=== PATIENT | male | born 1950 | race African-American/Black ===

== ENCOUNTER 2019-01-01 15:54 | Inpatient (IN) | payer MEDICARE, MEDICAID ==
[~2019-01-01] VITALS: Ht 188 cm; Wt 95.3 kg
[~2019-01-01 15:54] MED LIST: BENZTROPINE MESY2 MG ORAL; CARAFATE1 G1 ORAL; DOXAZOSIN MESYLA2 MG PO; INVEGA6 MG PO; KLOR-CON 88 MEQ PO; LISINOPRIL40 MG PO; MELOXICAM7.5 MG PO; MIRALAX17 GM PO; NEXIUM40 MG ORAL; NORVASC10 MG PO; RISPERDAL4 MG PO; SUCRALFATE1 GM/10 ML PO; THIORIDAZINE H100 MG PO
[2019-01-01 16:20] VITALS: BP 130/84
--- NOTE | 2019-01-01 16:20 | NUR ---
ED Nurse Note: patient walked into ED from home with sister in law. patient visited mental health clinic today and they spoke with his primary docter Dr. Tapia, Dr. Tapia sent the patient here for acute altered mental status. patient is alert and awake x1, disoriented to time and place, patient is compliant and follows direction. sister in law at bedside.
[2019-01-01] MEDS ORDERED: FLOMAX0.4 MG ORAL (16:21)
[2019-01-01] MEDS ORDERED: VITAMIN D3 COM1 EACH PO (16:21)
[2019-01-01] MEDS ORDERED: PANTOPRAZOLE SO40 MG ORAL (16:21)
--- NOTE | 2019-01-01 16:55 | NUR ---
ED Nurse Note: patient went down for CT
[2019-01-01 16:56] LABS: BASOPHILS % (AUTO) 0.9 % (0.0-2.0); EOSINOPHILS % (AUTO) 1.6 % (0.0-3.0); HEMOGLOBIN 14.4 G/DL (14.2-18.0); LYMPHOCYTES % (AUTO) 29.5 % (20.0-45.0); MEAN CORPUSCULAR VOLUME 85 FL (80-99); MONOCYTES % (AUTO) 7.3 % (1.0-10.0); NEUTROPHILS % (AUTO) 60.6 % (45.0-75.0); PLATELET COUNT 172 K/UL (150-450); RED BLOOD COUNT 5.17 M/UL (4.70-6.10); RED CELL DISTRIBUTION WIDTH 12.9 % (11.6-14.8)
[2019-01-01 17:04] LABS: INR 1.1 (0.9-1.1)
[2019-01-01 17:08] LABS: ANION GAP 14 mmol/L (5-15); BLOOD UREA NITROGEN 8 mg/dL (7-18); CALCIUM 9.7 MG/DL (8.5-10.1); CARBON DIOXIDE 24 MMOL/L (21-32); CHLORIDE 103 MMOL/L (98-107); CREATININE 1.3 MG/DL (0.55-1.30); POTASSIUM 3.5 MMOL/L (3.5-5.1); SODIUM 141 MMOL/L (136-145)
[2019-01-01 17:21] LABS: ALANINE AMINOTRANSFERASE 16 U/L (12-78); ALBUMIN 3.9 G/DL (3.4-5.0); ALBUMIN/GLOBULIN RATIO 0.9 (1.0-2.7); ALKALINE PHOSPHATASE 75 U/L (46-116); ASPARTATE AMINO TRANSFERASE 9 U/L (15-37); BILIRUBIN,TOTAL 0.6 MG/DL (0.2-1.0); CKMB < 0.5 NG/ML (0.0-3.6); CREATINE KINASE 59 U/L (26-308); PHOSPHORUS 3.5 MG/DL (2.5-4.9)
--- NOTE | 2019-01-01 17:22 | Diagnostic Imaging Report ---
Indication: Altered mental status Technique: Contiguous 5 mm thick transaxial imaging of the head obtained in a Siemens Sensation [address] scanner. Soft tissue and bone windows generated. Automatic Exposure Control was utilized. Total Dose length Product (DLP): 1495.[address] Dose Index Volume (CTDIvol): 70.38 mGy Comparison: 06/11/2008 Findings: Mild, nonspecific, white matter hypoattenuation is noted throughout the brain consistent with chronic small vessel disease. There is no midline shift, edema, acute hemorrhage, mass effect, or abnormal extra-axial fluid collections. Bones and extra osseous soft tissues are unremarkable. Impression: No acute intracranial bleed, mass effect or edema. Nonspecific white matter hypoattenuation probably due to chronic small vessel disease. The CT scanner at [facility] is accredited by the [employer] and the scans are performed using dose optimization techniques as appropriate to a performed exam including Automatic Exposure control.
--- NOTE | 2019-01-01 17:41 | Emergency Room Report ---
History of Present Illness General Chief Complaint: Altered Mental Status Source: Patient Present Illness HPI This patient is brought in by his sister. Apparently, the patient has had a significant decline over the past month. Per report, he has lost 20 pounds and has been more forgetful and has had a change in his cognition. Per report he has had delusions and this is unusual for him. The patient himself has no specific complaints. He stated to me that he is here because people were concerned he was having delusions. He denies recent illness. He denies pain. He denies headache. He denies fever or chills. He denies cough or congestion. When asked, he states that it is 1942, Viral is president and it is February. Allergies: Coded Allergies: No Known Allergies (Verified , 11/21/15) Patient History Past Medical History: see triage record, HTN, GERD, psych hx - Schizophrenia Social History: Denies: smoking, alcohol use, drug use Reviewed Nursing Documentation: PMH: Agreed; PSxH: Agreed Nursing Documentation-PMH Past Medical History: No History, Except For Hx Cardiac Problems: Yes Hx Hypertension: Yes Hx Cancer: No Hx Gastrointestinal Problems: Yes Hx Neurological Problems: No Review of Systems All Other Systems: negative except mentioned in HPI Physical Exam Vital Signs Date Time Temp Pulse Resp B/P (MAP) Pulse Ox O2 Delivery O2 Flow Rate FiO2 01/01/19 16:06 97.9 93 20 105/76 98 01/01/19 16:20 Room Air Sp02 EP Interpretation: reviewed, normal General Appearance: no apparent distress, alert, GCS 15, non-toxic Head: normocephalic, atraumatic Eyes: bilateral eye normal inspection, bilateral eye PERRL ENT: hearing grossly normal, normal pharynx, no angioedema, normal voice Neck: full range of motion, supple/symm/no masses Respiratory: chest non-tender, lungs clear, normal breath sounds, no respiratory distress, no retraction, no accessory muscle use, speaking full sentences Cardiovascular #1: regular rate, rhythm, no edema Gastrointestinal: normal bowel sounds, non tender, soft, non-distended, no guarding, no rebound Rectal: deferred Musculoskeletal: back normal, normal range of motion, non-tender Neurologic: alert, responsive, other - slurred speech Psychiatric: mood/affect normal, no suicidal/homicidal ideation Skin: normal color, no rash, warm/dry, well hydrated Medical Decision Making Diagnostic Impression: Primary Impression: Failure to thrive Additional Impression: Altered mental status ER Course This patient presents with a change in his mental status. He has lost weight which is consistent with failure to thrive. Apparently, he is deteriorating with his mental status and cognition. This could be related to his psychiatric history versus progression of dementia. There is no obvious infectious etiology. Laboratory workup to include CBC, CMP, cardiac enzymes and CT head showed abnormalities. This patient is admitted for further evaluation of his failure to thrive and deteriorating cognition. Laboratory Tests Test 01/01/19 16:30 01/01/19 16:36 01/01/19 17:43 White Blood Count 6.0 K/UL (4.8-10.8) Red Blood Count 5.17 M/UL (4.70-6.10) Hemoglobin 14.4 G/DL (14.2-18.0) Hematocrit 44.0 % (42.0-52.0) Mean Corpuscular Volume 85 FL (80-99) Mean Corpuscular Hemoglobin 27.9 PG (27.0-31.0) Mean Corpuscular Hemoglobin Concent 32.8 G/DL (32.0-36.0) Red Cell Distribution Width 12.9 % (11.6-14.8) Platelet Count 172 K/UL (150-450) Mean Platelet Volume 6.6 FL (6.5-10.1) Neutrophils (%) (Auto) 60.6 % (45.0-75.0) Lymphocytes (%) (Auto) 29.5 % (20.0-45.0) Monocytes (%) (Auto) 7.3 % (1.0-10.0) Eosinophils (%) (Auto) 1.6 % (0.0-3.0) Basophils (%) (Auto) 0.9 % (0.0-2.0) Prothrombin Time 11.2 SEC (9.30-11.50) Prothrombin Time INR 1.1 (0.9-1.1) PTT 26 SEC (23-33) Sodium Level 141 MMOL/L (136-145) Potassium Level 3.5 MMOL/L (3.5-5.1) Chloride Level 103 MMOL/L (98-107) Carbon Dioxide Level 24 MMOL/L (21-32) Anion Gap 14 mmol/L (5-15) Blood Urea Nitrogen 8 mg/dL (7-18) Creatinine 1.3 MG/DL (0.55-1.30) Estimate Glomerular Filtration Rate > 60 mL/min (>60) Glucose Level 90 MG/DL (74-106) Lactic Acid Level 1.70 mmol/L (0.4-2.0) Calcium Level 9.7 MG/DL (8.5-10.1) Phosphorus Level 3.5 MG/DL (2.5-4.9) Magnesium Level 1.8 MG/DL (1.8-2.4) Total Bilirubin 0.6 MG/DL (0.2-1.0) Aspartate Amino Transferase (AST) 9 U/L (15-37) L Alanine Aminotransferase (ALT) 16 U/L (12-78) Alkaline Phosphatase 75 U/L (46-116) Total Creatine Kinase 59 U/L (26-308) Creatine Kinase MB < 0.5 NG/ML (0.0-3.6) Creatine Kinase MB Relative Index 0.8 Troponin I 0.000 ng/mL (0.000-0.056) Total Protein 8.1 G/DL (6.4-8.2) Albumin 3.9 G/DL (3.4-5.0) Globulin 4.2 g/dL Albumin/Globulin Ratio 0.9 (1.0-2.7) L Urine Color Yellow Urine Appearance Clear Urine pH 6.5 (4.5-8.0) Urine Specific Milburn 1.010 (1.005-1.035) Urine Protein Negative (NEGATIVE) Urine Glucose (UA) Negative (NEGATIVE) Urine Ketones Negative (NEGATIVE) Urine Blood Negative (NEGATIVE) Urine Nitrite Negative (NEGATIVE) Urine Bilirubin Negative (NEGATIVE) Urine Urobilinogen 1 MG/DL (0.0-1.0) H Urine Leukocyte Esterase 1+ (NEGATIVE) H Urine RBC 0-2 /HPF (0 - 0) H Urine WBC 0-2 /HPF (0 - 0) Urine Squamous Epithelial Cells Occasional /LPF Urine Bacteria None /HPF (NONE) Microbiology Date/Time Source Procedure Growth Status 01/01/19 16:36 Nasal Nares Influenza Types A,B Antigen (FEDE) - Final Complete Laboratory Tests Test 01/01/19 16:30 01/01/19 16:36 White Blood Count 6.0 K/UL (4.8-10.8) Red Blood Count 5.17 M/UL (4.70-6.10) Hemoglobin 14.4 G/DL (14.2-18.0) Hematocrit 44.0 % (42.0-52.0) Mean Corpuscular Volume 85 FL (80-99) Mean Corpuscular Hemoglobin 27.9 PG (27.0-31.0) Mean Corpuscular Hemoglobin Concent 32.8 G/DL (32.0-36.0) Red Cell Distribution Width 12.9 % (11.6-14.8) Platelet Count 172 K/UL (150-450) Mean Platelet Volume 6.6 FL (6.5-10.1) Neutrophils (%) (Auto) 60.6 % (45.0-75.0) Lymphocytes (%) (Auto) 29.5 % (20.0-45.0) Monocytes (%) (Auto) 7.3 % (1.0-10.0) Eosinophils (%) (Auto) 1.6 % (0.0-3.0) Basophils (%) (Auto) 0.9 % (0.0-2.0) Prothrombin Time 11.2 SEC (9.30-11.50) Prothrombin Time INR 1.1 (0.9-1.1) PTT 26 SEC (23-33) Sodium Level 141 MMOL/L (136-145) Potassium Level 3.5 MMOL/L (3.5-5.1) Chloride Level 103 MMOL/L (98-107) Carbon Dioxide Level 24 MMOL/L (21-32) Anion Gap 14 mmol/L (5-15) Blood Urea Nitrogen 8 mg/dL (7-18) Creatinine 1.3 MG/DL (0.55-1.30) Estimate Glomerular Filtration Rate > 60 mL/min (>60) Glucose Level 90 MG/DL (74-106) Lactic Acid Level 1.70 mmol/L (0.4-2.0) Calcium Level 9.7 MG/DL (8.5-10.1) Phosphorus Level 3.5 MG/DL (2.5-4.9) Magnesium Level 1.8 MG/DL (1.8-2.4) Total Bilirubin 0.6 MG/DL (0.2-1.0) Aspartate Amino Transferase (AST) 9 U/L (15-37) L Alanine Aminotransferase (ALT) 16 U/L (12-78) Alkaline Phosphatase 75 U/L (46-116) Total Creatine Kinase 59 U/L (26-308) Creatine Kinase MB < 0.5 NG/ML (0.0-3.6) Creatine Kinase MB Relative Index 0.8 Troponin I 0.000 ng/mL (0.000-0.056) Total Protein 8.1 G/DL (6.4-8.2) Albumin 3.9 G/DL (3.4-5.0) Globulin 4.2 g/dL Albumin/Globulin Ratio 0.9 (1.0-2.7) L Microbiology Date/Time Source Procedure Growth Status 01/01/19 16:36 Nasal Nares Influenza Types A,B Antigen (FEDE) - Final Complete EKG Diagnostic Results Rate: normal Rhythm: NSR ST Segments: no acute changes Rhythm Strip Diag. Results EP Interpretation: yes Rate: 80's Rhythm: NSR, no PVC's, no ectopy Chest X-Ray Diagnostic Results Chest X-Ray Diagnostic Results : Chest X-Ray Ordered: Yes # of Views/Limited/Complete: 1 View Indication: Other EP Interpretation: Yes Interpretation: no consolidation, no effusion, no pneumothorax, no acute cardiopulmonary disease Impression: No acute disease Electronically Signed by: Rebecca Paul DO Last Vital Signs Date Time Temp Pulse Resp B/P (MAP) Pulse Ox O2 Delivery O2 Flow Rate FiO2 01/01/19 16:21 84 24 Room Air 01/01/19 16:20 97.9 130/84 99 Disposition: ADMITTED INPATIENT Condition: Stable Referrals: Donald Tapia MD (PCP) Rebecca Paul DO Jan 01, 2019 17:40
[2019-01-01 18:02] LABS: APPEARANCE,URINE CLEAR; BILIRUBIN, URINE NEGATIVE (NEGATIVE); COLOR,URINE YELLOW; GLUCOSE, URINE (UA) NEGATIVE (NEGATIVE); KETONES,URINE NEGATIVE (NEGATIVE); LEUKOCYTE ESTERASE ,URINE 1+ (NEGATIVE); NITRITE,URINE NEGATIVE (NEGATIVE); PH,URINE 6.5 (4.5-8.0); PROTEIN,URINE NEGATIVE (NEGATIVE); UROBILINOGEN,URINE 1 MG/DL (0.0-1.0)
[2019-01-01 18:27] VITALS: BP 130/84
--- NOTE | 2019-01-01 19:10 | NUR ---
HAND-OFF: Report given to Ayush Reyes RN. Patient stable in bed
--- NOTE | 2019-01-01 19:30 | NUR ---
ED Nurse Note: Called for report. Left on hold for 10 min. Will attempt to call back.
--- NOTE | 2019-01-01 19:40 | NUR ---
ED Nurse Note: Called back unit. No answer. Notified charge master specialist. placement secretary called unit; no answer. Notified Nursing Field Organizer.
--- NOTE | 2019-01-01 20:15 | NUR ---
TRANSFER TO FLOOR: Patient transferred to Med Surg 402-2 as ordered, per MD Willie . Report given to ALICE Masters. Patient in stable condition. Belongings list completed with receiving RN.
--- NOTE | 2019-01-01 20:30 | NUR ---
NURSE NOTES: Pt is admitted from ER with Dx of Altered Mental Status under Dr. tapia.Report received from Ayush ERAZO RN. Pt is awake and verbal. No acute distress noted. Vitals stable. Pt is oriented to the unit. Board updated. Pt's belongings checked. Orders acknowledged from Dr. Tapia. Dr. tapia will be called for further orders. Bed low in position,side rails up and call light within reach. Bed alarm on. Fall precautions implemented. Pt will be monitored.
[2019-01-01 20:32] VITALS: BP 129/86
[2019-01-01] MEDS: NS w/KCl 20mEq 1,000 ML IV SCH (20:49)
[2019-01-01] MEDS: Heparin 5000 units/ml inj SUBQ SCH (20:57)
--- NOTE | 2019-01-01 21:45 | NUR ---
NURSE NOTES: Pharmacy called regarding orders of Thorazine and Risperdal being scheduled together . Sister -in- law Jossie and Dr. Tapia is called to clarify the med orders per request of pharmacy. Message left , awating call back.
[2019-01-01] MEDS: Tamsulosin 0.4mg cap ORAL SCH (23:25)
[2019-01-02] VITALS: BP 135/82
[2019-01-02 04:00] VITALS: BP 137/72
--- NOTE | 2019-01-02 04:00 | NUR ---
NURSE NOTES: Pt's aipscd-ir-die Jossie is called again to speak to her regarding home medication, no answer.
--- NOTE | 2019-01-02 04:33 | NUR ---
NURSE NOTES: Ns with 20 mEq KCl running at 75ml/hr. Pt is able to drink juice and take meds. No acute distress noted.
--- NOTE | 2019-01-02 07:25 | NUR ---
HAND-OFF: Report given to Elba Jerry RN.Informed to get the medication orders clarified. Addendum: 01/02/19 at 0733 by RENETTA ZUNIGA RN RN Also rosie JENKINS made aware that pt is Fall Risk.
--- NOTE | 2019-01-02 07:33 | NUR ---
NURSE NOTES: Received report from ALICE Masters. Pt in bed asleep, respirations regular and appear unlabored, no apparent distress noted, bed in lowest position, call light within reach.
[2019-01-02 08:00] VITALS: BP 134/86
--- NOTE | 2019-01-02 08:22 | NUR ---
NURSE NOTES: Confirmed with Chantal in Pharmacy, okay to give Risperidol due to low dose. Hold Thorizine until dosage is confirmed and confirmed it is a home medication. Also, confirm with Dr. Tapia.
[2019-01-02] MEDS: Benztropine 1mg tab ORAL SCH ×3 (08:24→17:10)
--- NOTE | 2019-01-02 08:28 | NUR ---
CASE MANAGEMENT:REVIEW 68YR OLD FEMALE FROM HOME TO ER CC: SENT BY DR GUTIERREZ D/T BEING ALTERED SI: AMS. FTT 97.8 93 20 105/76 98% ON RA TROPONIN(-) IS: 1L NS BOLUS CT HEAD CXR BLOOD CX : TO MED/SURG UNIT 4 EAST PLAN: NEURO CHECKS Q4HR INTERQUAL CRITERIA MET Addendum: 01/02/19 at 0833 by NHAN WIGGINS LVN LVN CORRECTION 68 YR OLD MALE FROM HOME TO ER
[2019-01-02] MEDS: Heparin 5000 units/ml inj SUBQ SCH ×2 (08:31→20:51)
[2019-01-02] MEDS: NS w/KCl 20mEq 1,000 ML IV SCH (08:37)
--- NOTE | 2019-01-02 11:34 | NUR ---
RD ASSESSMENT & RECOMMENDATIONS SEE CARE ACTIVITY FOR COMPLETE ASSESSMENT DAILY ESTIMATED NEEDS: Needs based on cardiac 88.6kg adj 25-30 kcals/kg 4864-0457 total kcals 1-1.2 g protein/kg 89-106 g total protein 25-30 mL/kg 8013-5509 total fluid mLs NUTRITION DIAGNOSIS: Chewing difficulty r/t dentition as evidenced by pt is edentulous, pending STEREOTYPE MOLDER eval for possible swallowing difficulty. CURRENT DIET: LUIS ENRIQUE soft easy chew PO DIET RECOMMENDATIONS: LOW NA diet (texture per STEREOTYPE MOLDER) ADDITIONAL RECOMMENDATIONS: 1) Obtain a calibrated bed scale wt + weekly weights 2) Add ENSURE ENLIVE BID in b/w meals daily 3) Add snacks daily 4) Monitor po intake
[2019-01-02 12:00] VITALS: BP 140/78
--- NOTE | 2019-01-02 12:06 | Diagnostic Imaging Report ---
Indication: Dyspnea Comparison: 11/23/2015 A single view chest radiograph was obtained. Findings: Interstitial opacities are present within the upper lobes. This was seen previously. Lung volumes are low. Heart is borderline in size. Aorta is ectatic. IMPRESSION: No acute disease
--- NOTE | 2019-01-02 13:31 | NUR ---
NURSE NOTES: Spoke with Dr. Tapia regarding Thorazine and Risperadol order. Confirmed with Dr. Tapia that both medications should be given and change in dose of Risperadol was purposeful from 4mg to 2mg. Dr. Tapia stated he ordered them himself. Notified Gigi in Pharmacy, she will verify Thorazine order.
--- NOTE | 2019-01-02 14:01 | NUR ---
ST NOTE: BEDSIDE SWALLOW EVAL RECEIVED BEDSIDE SWALLOW EVAL ORDER CHART REVIEWED PRIOR THE EVALUATION REFERRED BY MD, DR. GUTIERREZ. PT IS A 68-YEAR-OLD MALE WHO WAS ADMITTED DUE TO ALTERED MENTAL STATUS AND FAILURE TO THRIVE. DYSPHAGIA RISK FACTORS: HTN, CARDIAC DISORDER, ?UNDERLYING DEMENTIA, SIGNIFICANT WEIGHT LOSS(20 POUNDS), PSYCH(SCHIZOPHRENIA, BIPOLAR DISORDER AND ANXIETY). PER CXR: NO ACUTE PROCESS HEAD CT: No acute intracranial bleed, mass effect or edema. Nonspecific white matter hypoattenuation probably due to chronic small vessel disease. PT IS ON THORAZINE, RISPERADOL AND BENZTNPINE(ANTIPARKINSONIAN) MEDICATIONS. PLOF: PT LIVES AT HOME WITH FAMILY. CURRENT STATUS: PT SEEN AT BEDSIDE IN AM. ALERT, COOPERATIVE, FOLLOW DIRECTIONS WITH CUES, ORIENT X 1. PT WAS UNABLE TO RECALL HIS BIRTHDAY WHEN ASKED, RECALLED IT AFTER 5 MINS. DENIED ANY SWALLOWING DIFFICULTY. GIVEN PO TRIALS: THIN(CUP/STRAW), PUREE(TSP), PT REFUSED MASTICATED SOLID. INITIAL IMPRESSION: PT EDENTULOUS. REDUCED LINGUAL MOVEMENT AND STRENGTH, MILD INCREASED ORAL TRANSIT TIME AND OROPHARYNGEAL TRANSIT TIME, ADEQUATE LARYNGEAL ELEVATION, NO OVERT S/S OF ASPIRATION WAS NOTED. HAS RISK FACTORS FOR ASPIRATION. RECOMMENDATIONS: 1. CONTINUE CURRENT DIET(SOFT, EASY CHEW WITH THIN LIQUIDS) 2. ASPIRATION PRECAUTIONS WITH 1TO1 ASSIST. 3. MODIFIED BARIUM SWALLOW STUDY WILL FOLLOW(PER MD ORDERED) 4. SWALLOW TX AND MANAGEMENT. POSTED ASPIRATION PRECAUTIONS SIGN. D/W RNALEJANDRA
--- NOTE | 2019-01-02 14:24 | NUR ---
ST NOTE: MODIFIED BARIUM SWALLOW STUDY COMPLETED MODIFIED BARIUM SWALLOW STUDY(MBSS) FULL REPORT WILL FOLLOW IN ST NOTE UNDER CARE ACTIVITY. RADIOLOGIST WAS INFORMED PRIOR THE MBSS. PT ALERT, COOPERATIVE, FOLLOWS DIRECTIONS GIVEN PO TRIALS: THIN LIQUIDS(TSPX2/MED CUP-SELF/STRAW-SEQUENTIAL) NECTAR THICK(TSP/STRAW-SEQUENTIAL) HONEY THICK(TSP) PUDDING(TSP) PT REFUSED MASTICATED SOLID. IMPRESSION: PT PRESENTS WITH MIN TO MILD OROPHARYNGEAL DYSPHAGIA, ORAL PHASE WORSE THAN PHARYNGEAL PHASE, CHARACTERIZED BY MILDLY INCREASE ORAL TRANSIT TIME AND OROPHARYNGEAL TRANSIT TIME, MILD ORAL RESIDUE WAS NOTED AFTER SWALLOW DUE TO SENSORIMOTOR DEFICITS. PT WAS ABLE TO DOUBLE SWALLOW TO CLEAR ORAL RESIDUE. NO SIGNIFICANT PENETRATION OR ASPIRATION WAS NOTED WITH ALL CONSISTENCIES BUT DELAYED SWALLOW WAS NOTED. MILD ESOPHAGEAL DYSPHAGIA CHARACTERIZED BY MILD REFLUX FLOW THROUGH PHARYNGO-ESOPHAGEAL SEGMENT(PES). RECOMMENDATIONS: 1. PER PT'S REQUEST(PT DID NOT WANT PUREED FOOD) CONTINUE SOFT, EASY CHEW WITH THIN LIQUIDS DIET. 2. STRICT ASPIRATION/REFLUX PRECAUTIONS WITH 1:1 ASSIST. 3. SPEECH/LANGUAGE/COGNITION EVAL RE: DECLINE IN COGNITION D/W PT AND RNALEJANDRA. UPDATED ASPIRATION/REFLUX PRECAUTIONS SIGN.
[2019-01-02 16:00] VITALS: BP 148/85
[2019-01-02] MEDS ORDERED: chlorproMAZINE 25mg tab ORAL SCH (18:00)
--- NOTE | 2019-01-02 19:33 | NUR ---
NURSE NOTES: Pt is in bed, awake and verbal. No acute distress noted. Ns with 20mEq KCl running at 75ml/hr. Pt is instructed to call for assistance before getting out of bed. Fall precaution in place. Bed alarm on. Bed low in position,side rails up and call light within reach.
--- NOTE | 2019-01-02 19:40 | NUR ---
HAND-OFF: Report given to ALICE Masters.
[2019-01-02 20:00] VITALS: BP 151/84
[2019-01-02] MEDS: Tamsulosin 0.4mg cap ORAL SCH (20:46)
[2019-01-03] VITALS: BP 142/80
[2019-01-03] MEDS: NS w/KCl 20mEq 1,000 ML IV SCH ×3 (00:54→16:13)
[2019-01-03 04:00] VITALS: BP 145/82
--- NOTE | 2019-01-03 05:30 | Progress Note ---
DATE: 01/02/2019 CARDIOLOGY PROGRESS NOTE SUBJECTIVE: The patient feels better. Appetite is still fair. The patient's outpatient medication regimen was reviewed and his psych therapy was adjusted. I have contacted Dr. Ponce to assist with care. The patient is no longer taking Thorazine as an outpatient. He is remaining on Risperdal and Ingrezza. He also takes benztropine for extrapyramidal symptoms. OBJECTIVE: VITAL SIGNS: Blood pressure is 105/76, pulse 93, respirations 20, and afebrile yesterday. Presently, blood pressure parameters have improved. LUNGS: Clear. CARDIAC: Regular. ABDOMEN: Soft. EXTREMITIES: No edema. IMPRESSION: 1. Failure to thrive. 2. Encephalopathy of unclear etiology. 3. Hypertensive heart disease now with low range blood pressure returned to baseline. 4. Schizophrenia. PLAN: 1. Continue with low-dose amlodipine (half his usual dose). 2. Maintain adequate hydration. 3. GI workup to follow. 4. Awaiting swallow evaluation. Donald Tapia M.D. DR: MIGUEL JOB#: [id number] CC:
--- NOTE | 2019-01-03 05:30 | NUR ---
NURSE NOTES: Pt is in bed, asleep. No acute distress noted. Vitals stable.
--- NOTE | 2019-01-03 05:45 | History and Physical Report ---
DATE OF ADMISSION: 01/01/2019 CARDIOLOGY EVALUATION ATTENDING PHYSICIAN: Donald Tapia M.D. REQUESTING PHYSICIAN: Krystian Nelson M.D. REASON FOR ADMISSION: Low blood pressure. HISTORY OF PRESENT ILLNESS: This is a 68-year-old male, known to me from many years of care. The patient has schizophrenia, hypertensive heart disease, and chronic obstructive pulmonary disease. He has had several months of weight loss, poor appetite, and general decline in function. More recently, his cognition has decreased. Hospitalization was initiated for further evaluation and care. The patient has been noted to have a low blood pressure. He usually has a blood pressure even on several blood pressure medications. He is not a reliable historian presently. There have been no episodes of loss of consciousness or complaints of dizziness noted by his caregiver. PAST MEDICAL HISTORY: Chronic obstructive pulmonary disease, schizophrenia, hypertensive heart disease, osteoarthritis, degenerative disk disease, tardive dyskinesias, and prostatic hypertrophy. MEDICATIONS: Reviewed and reconciled. ALLERGIES: None known. FAMILY HISTORY: Notable for lung cancer in his brother. SOCIAL HISTORY: Former smoker. Quit several years ago. He had a [id number] smoking history. No alcohol or substance abuse. REVIEW OF SYSTEMS: Cannot be reliably obtained from the patient at this time. PHYSICAL EXAM: GENERAL: Awake, alert, and confused but responsive, recognizes me. Alert and oriented x2. VITAL SIGNS: Blood pressure is 105/76, heart rate 92, and respiratory rate 20. He is afebrile. Oxygen saturation 98% on room air. HEENT: Tardive dyskinesia is obvious in the mouth. Conjunctivae are pink. Sclerae are anicteric. Oropharynx clear. NECK: Supple. Jugular venous pressure normal. LUNGS: Clear. CARDIAC: Regular rhythm and rate. Normal S1, S2 with no murmur, rub, or gallop. ABDOMEN: Soft and nontender. EXTREMITIES: Good pulses. No edema. NEUROLOGIC: Other than the dyskinesia, strength is symmetric. LABORATORY DATA: White count 6 and hemoglobin 14. Chemistry panel within normal limits. Lactic acid 1.7. Troponin negative. IMPRESSION: 1. Failure to thrive. 2. Encephalopathy. 3. Schizophrenia. 4. Hypovolemia. 5. Low range blood pressure due to above. PLAN: 1. Decrease psych regimen to half the usual dose. 2. Decrease antihypertensives to half the usual dose with hold parameters. 3. Hydrate. 4. Encourage oral intake. 5. Swallow evaluation. 6. We will continue to follow and make adjustments in care plan and metabolic profile has been requested as well. Donald Tapia M.D. DR: YONY JOB#: [id number] CC: SUPRIYA
--- NOTE | 2019-01-03 07:20 | NUR ---
HAND-OFF: Report given to Seferino Madrid RN.Pt is in bed, awake and verbal. Informed that patient is Fall Risk.
--- NOTE | 2019-01-03 07:25 | NUR ---
NURSE NOTES: RN received pt in stable condition. No acute distress. Bed in low, locked position, call light within reach. Pt instructed to use call button before getting out of bed to use bathroom. Will continue to monitor.
--- NOTE | 2019-01-03 07:35 | NUR ---
NURSE NOTES: Received patient from Guerrero RN, patient is resting comfortably in bed, no distress noted, bed is locked and in lowest position, alarm set, call light within reach, will continue to monitor.
[2019-01-03 08:00] VITALS: BP 115/69
[2019-01-03] MEDS: Benztropine 1mg tab ORAL SCH ×3 (09:04→17:06)
[2019-01-03] MEDS: Vitamin B12 1000mcg/ml Inj IM SCH (09:05)
[2019-01-03] MEDS: Heparin 5000 units/ml inj SUBQ SCH ×2 (09:06→21:17)
[2019-01-03 12:00] VITALS: BP 125/74
[2019-01-03 16:00] VITALS: BP 147/88
[2019-01-03] MEDS ORDERED: Isovue-300 100ml vial INJ PRN (16:15)
--- NOTE | 2019-01-03 19:18 | NUR ---
HAND-OFF: Report given to ALICE Mercado.
--- NOTE | 2019-01-03 19:22 | NUR ---
HAND-OFF: Report given to Vianney JENKINS .
--- NOTE | 2019-01-03 19:57 | NUR ---
NURSE NOTES:RECIEVED PT. AWAKE AND ALERT NO S/S OF DISTRESS NOTED @ THIS TIME.INSTRUCTED TO CALL FOR ASSISTANCE CALL LIGHT WITHIN REACH @ ALL TIMES.NEEDS ANTICIPATED.
[2019-01-03 20:00] VITALS: BP 147/79
[2019-01-03] MEDS: Tamsulosin 0.4mg cap ORAL SCH (21:11)
--- NOTE | 2019-01-03 22:43 | Consultation ---
History of Present Illness General Chief Complaint: Altered Mental Status Present Illness HPI 68-year-old schizophrenic man, who was admitted due to decreased intake and weakness. the pt was disoriented and was unable to provide meaningful hx. the pt has memory impairment the pt is on high dose of risperdal Allergies: Coded Allergies: No Known Allergies (Verified , 11/21/15) Medication History Scheduled Amlodipine Besylate (Norvasc), 10 MG PO DAILY, (Reported) Amlodipine Besylate (Norvasc), 5 MG ORAL DAILY, (Reported) Benztropine Mesylate* (Benztropine Mesylate*), 2 MG ORAL THREE TIMES A DAY, ( Reported) Benztropine Mesylate* (Cogentin*), 1 MG PO THREE TIMES A DAY, (Reported) Cyanocobalamin (Vitamin B-12)* (Vitamin B-12*), 1,000 MCG IM DAILY, (Reported) Esomeprazole Magnesium (Nexium), 40 MG ORAL DAILY, (Reported) Famotidine (Pepcid Ac), 20 MG PO Q12HR, (Reported) Folic Acid* (Folic Acid*), 1 MG ORAL DAILY, (Reported) Paliperidone (Invega), 6 MG PO BEDTIME, (Reported) Pantoprazole* (Pantoprazole*), 40 MG ORAL DAILY, (Reported) Risperidone (Risperdal), 4 MG PO BID, (Reported) Risperidone* (Risperdal*), 2 MG ORAL Q12HR, (Reported) Tamsulosin HCl (Flomax), 0.4 MG ORAL DAILY, (Reported) Tamsulosin HCl (Flomax), 0.4 MG ORAL QHS, (Reported) Thioridazine Hcl (Thioridazine Hcl), 100 MG PO TID, (Reported) Scheduled PRN Meloxicam* (Meloxicam*), 7.5 MG PO DAILY PRN for For Pain, (Reported) Miscellaneous Medications Mv-Mn/Iron/Fa/Herbal Cmplx#190 (Vitamin D3 Complete Caplet), 1 EACH PO, ( Reported) Patient History Limited by: medical condition History Provided By: Medical Record, PMD Healthcare decision maker N Resuscitation status Full Code Advanced Directive on File Past Medical/Surgical History Past Medical/Surgical History: (1) Altered level of consciousness (2) Failure to thrive (3) Schizophrenia (4) Acute encephalopathy Review of Systems Psychiatric: Reports: prior hx, anxiety, depressed feelings, emotional problems Physical Exam General Appearance: no apparent distress, alert, confused Last 24 Hour Vital Signs Date Time Temp Pulse Resp B/P (MAP) Pulse Ox O2 Delivery O2 Flow Rate FiO2 01/03/19 20:00 98.2 64 18 147/79 (101) 98 01/03/19 16:00 97.5 65 20 147/88 (107) 96 01/03/19 12:00 97.4 71 18 125/74 (91) 97 01/03/19 09:05 90 115/69 01/03/19 09:00 Room Air 01/03/19 08:00 97.4 90 18 115/69 (84) 98 01/03/19 04:00 97.6 62 17 145/82 (103) 98 01/03/19 00:00 97.2 60 17 142/80 (100) 98 Intake and Output 01/02/19 01/03/19 19:00 07:00 Intake Total 1400 ml 1360 ml Output Total 1200 ml Balance 1400 ml 160 ml Intake Oral 800 ml 460 ml IV Total 600 ml 900 ml Output Urine Total 1200 ml # Bowel Movements 1 Height (Feet): 6 Height (Inches): 2.00 Weight (Pounds): 210 Medications Current Medications Medications (Trade) Dose Ordered Sig/Iglesia Route PRN Reason Start Time Stop Time Status Last Admin Dose Admin Amlodipine Besylate (Norvasc) 5 mg DAILY ORAL 01/02/19 09:00 02/01/19 08:59 01/03/19 09:05 Barium Sulfate (Readi-Cat 2) 450 ml NOW PRN ORAL Radiology Procedure 01/03/19 16:15 01/03/19 23:59 Benztropine Mesylate (Cogentin) 1 mg THREE TIMES A DAY ORAL 01/02/19 09:00 02/01/19 08:59 01/03/19 17:06 Cyanocobalamin (Vitamin B12) 1,000 mcg DAILY IM 01/03/19 09:00 01/06/19 10:00 01/03/19 09:05 Famotidine (Pepcid) 20 mg Q12HR ORAL 01/01/19 21:00 01/31/19 20:59 01/03/19 21:11 Folic Acid (Folate) 1 mg DAILY ORAL 01/03/19 09:00 02/02/19 08:59 01/03/19 09:05 Heparin Sodium (Porcine) (Heparin 5000 units/ml) 5,000 units EVERY 12 HOURS SUBQ 01/01/19 21:00 01/31/19 20:59 01/03/19 21:17 Iopamidol (Isovue-300 100ml) 100 ml NOW PRN INJ Radiology Procedure 01/03/19 16:15 01/03/19 23:59 Risperidone (RisperDAL) 2 mg Q12HR ORAL 01/02/19 09:00 02/01/19 08:59 01/03/19 21:11 Sodium Chloride 1,000 ml @ 50 mls/hr Q20H IV 01/03/19 16:13 02/02/19 16:12 Tamsulosin HCl (Flomax) 0.4 mg BEDTIME ORAL 01/01/19 21:00 01/31/19 20:59 01/03/19 21:11 Assessment/Plan Problem List: (1) Acute encephalopathy ICD Codes: G93.40 - Encephalopathy, unspecified SNOMED: 30304774, 959864004 (2) Schizophrenia ICD Codes: F20.9 - Schizophrenia, unspecified SNOMED: 82849673 Status: stable Assessment/Plan Risperdal was reduced by Dr. Tapia which was appropriate max dose 6mg Invega not on formulary the pt is at high dose of Risperdal dont rec second antipsychotic Pat Ponce MD Jan 03, 2019 22:43
--- NOTE | 2019-01-03 23:00 | Progress Note ---
DATE: 01/03/2019 CARDIOLOGY PROGRESS NOTE SUBJECTIVE: The patient is without new complaints. OBJECTIVE: VITAL SIGNS: Blood pressure 115/69, heart rate 90, respiratory rate 18. LUNGS: Clear. CARDIAC: Regular, normal S1, S2. ABDOMEN: Soft. EXTREMITIES: No edema. Cultures are negative. IMPRESSION: 1. Schizophrenia. 2. B12 and folate deficiency. 3. Dysphagia, failure to thrive. 4. May be psychiatric in etiology. 5. COPD. 6. Hypertensive heart disease. PLAN: 1. Await psych followup. 2. Aspiration precautions. 3. Avoid tight blood pressure control. 4. We will obtain CT scan of the abdomen and pelvis. Donald Tapia M.D. DR: MARZENA JOB#: [id number] CC:
[2019-01-04] VITALS: BP 129/63
[2019-01-04 04:00] VITALS: BP 142/80
[2019-01-04] MEDS: NS w/KCl 20mEq 1,000 ML IV SCH (06:41)
--- NOTE | 2019-01-04 07:20 | NUR ---
HAND-OFF: Report given to PILLO JENKINS.
--- NOTE | 2019-01-04 07:24 | NUR ---
NURSE NOTES: RN received pt in stable condition, resting in bed. No acute distress or SOB. Bed in low, locked position. Call light within reach. Will continue plan of care.
--- NOTE | 2019-01-04 07:36 | NUR ---
NURSE NOTES: Received patient from Vianney RN, patient is resting in bed, no distress noted, bed is locked and in lowest position, alarm set, call light within reach, will continue to monitor.
[2019-01-04 08:00] VITALS: BP 140/79
[2019-01-04] MEDS: Benztropine 1mg tab ORAL SCH ×3 (09:15→17:21)
[2019-01-04] MEDS: Vitamin B12 1000mcg/ml Inj IM SCH (09:15)
[2019-01-04] MEDS: Heparin 5000 units/ml inj SUBQ SCH ×2 (09:17→20:07)
[2019-01-04 12:00] VITALS: BP 142/84
[2019-01-04 16:00] VITALS: BP 134/70
--- NOTE | 2019-01-04 19:10 | NUR ---
HAND-OFF: Report given to Mikal JENKINS.
--- NOTE | 2019-01-04 19:31 | NUR ---
NURSE NOTES: Received patient awake in bed, able to verbalize needs, no c/o pain at this time. IV site flushing, dressing dry and intact. Fall and safety precautions taken.
--- NOTE | 2019-01-04 19:48 | NUR ---
CASE MANAGEMENT: REVIEW 01/04/2019 SI:FTT. ENCEPHALOPATHIA. T 97.7 HR 67 RR 18 B/P 134/70 SATS 99% ON RA NO LABS TODAY IS:IVF @ 50 mL/HR FLOMAX PO QHS NORVASC PO QD RISPERDAL PO Q12H COGENTIN PO TID MED/SURG STATUS
[2019-01-04 20:00] VITALS: BP 131/73
[2019-01-04] MEDS: Tamsulosin 0.4mg cap ORAL SCH (20:06)
--- NOTE | 2019-01-04 22:44 | General Progress Note ---
Assessment/Plan Problem List: (1) Acute encephalopathy ICD Codes: G93.40 - Encephalopathy, unspecified SNOMED: 70566480, 555322719 (2) Schizophrenia ICD Codes: F20.9 - Schizophrenia, unspecified SNOMED: 26353243 Status: stable, tolerating diet Assessment/Plan Risperdal will be continued the pt lacks capacity to make decisions Subjective Constitutional: Reports: malaise, weakness Neurologic/Psychiatric: Reports: anxiety Allergies: Coded Allergies: No Known Allergies (Verified , 11/21/15) Subjective the pt was more alert today no psychotic sxs somewhat confused knows in the hospital Objective Last 24 Hour Vital Signs Date Time Temp Pulse Resp B/P (MAP) Pulse Ox O2 Delivery O2 Flow Rate FiO2 01/04/19 20:00 97.5 66 18 131/73 (92) 99 01/04/19 16:00 97.7 67 18 134/70 (91) 99 01/04/19 12:00 98.1 70 19 142/84 (103) 98 01/04/19 09:16 73 140/79 01/04/19 09:00 Room Air 01/04/19 08:00 98.5 73 18 140/79 (99) 99 01/04/19 04:00 98.7 70 18 142/80 (100) 98 01/04/19 00:00 98.9 76 18 129/63 (85) 100 Intake and Output 01/03/19 01/04/19 18:59 06:59 Intake Total 1080 ml 240 ml Output Total 500 ml Balance 1080 ml -260 ml Intake Oral 1080 ml 240 ml Output Urine Total 500 ml # Voids 2 2 # Bowel Movements 3 Height (Feet): 6 Height (Inches): 2.00 Weight (Pounds): 210 General Appearance: WD/WN, no apparent distress, alert, confused Pat Ponce MD Jan 04, 2019 22:44
[2019-01-05] VITALS: BP 134/87
--- NOTE | 2019-01-05 03:45 | Progress Note ---
DATE: 01/04/2019 INTERNAL MEDICINE PROGRESS NOTE SUBJECTIVE: The patient is cooperative, alert, more interactive. OBJECTIVE: VITAL SIGNS: Blood pressure 131/73, pulse 66, and respirations 18. LUNGS: Clear. CARDIAC: Regular. Normal S1, S2. ABDOMEN: Soft. EXTREMITIES: No edema. Tardive dyskinesia is noted. IMPRESSION: 1. Psychosis. 2. Encephalopathy. 3. Folate and B12 deficiencies. 4. Hypertensive heart disease. 5. COPD. 6. Dysphagia. PLAN: 1. Speech, occupational, and physical therapy. 2. Aspiration precautions. 3. Nutritional support. 4. Psych followup. 5. Vitamin supplement. Donald Tapia M.D. DR: NIR JOB#: [id number] CC:
[2019-01-05 04:00] VITALS: BP 135/77
--- NOTE | 2019-01-05 07:05 | NUR ---
HAND-OFF: Report given to ALICE Joya.
--- NOTE | 2019-01-05 07:41 | NUR ---
CASE MANAGEMENT:REVIEW 01/05/19 SI: ENCEPHALOPATHY. COPD. 98.4 67 18 135/77 99% ON RA IS: IVF@50/HR FOLATE PO QD IM B12 QD COGENTIN PO TID RISPERDAL PO Q12 NORVASC PO QD HEPARIN SQ Q12 FLOMAX PO QHS PEPCID PO Q12 : MED/SURG 4 [facility] PL[facility]: ST AND PT KAM REFERRED TO [facility]
--- NOTE | 2019-01-05 07:47 | NUR ---
DISCHARGE PLANNING DISCHARGE PLANNING ORDER NOTED CLINICALS FAXED TO [facility] T: [phone] F: [phone] STILL NEED PT ASSESSMENT AND NOTES
[2019-01-05 08:00] VITALS: BP 139/91
--- NOTE | 2019-01-05 08:16 | NUR ---
NURSE NOTES: Patient is alert and oriented to name, place, time, and event. Patient is able to ambulate. Bed is locked, in lowest position, and call light is within reach. Patient does not have any reports of discomfort at the moment. Will continue to monitor.
[2019-01-05] MEDS: NS w/KCl 20mEq 1,000 ML IV SCH (08:55)
[2019-01-05] MEDS: Benztropine 1mg tab ORAL SCH ×3 (09:00→18:42)
[2019-01-05] MEDS: Heparin 5000 units/ml inj SUBQ SCH ×2 (09:00→20:17)
--- NOTE | 2019-01-05 11:34 | NUR ---
HAND-OFF: Report given to ALICE Rodriguez.
--- NOTE | 2019-01-05 12:15 | NUR ---
NURSE NOTES: Receieve report ,patient is alert and oriented,IV fluids infusing as ordered.Patient per report had CT of abdomen and pelvis,no complaints at this time.Bed alarm is on,call light within reach.
[2019-01-05 12:31] VITALS: BP 136/79
--- NOTE | 2019-01-05 12:55 | Cardiology Report ---
APPROVED REPORT EKG Measurement Heart [id number] NM [id number] Normal sinus rhythm Possible Left atrial enlargement Borderline ECG
--- NOTE | 2019-01-05 14:01 | NUR ---
DISCHARGE PLAN PATIENT HAS BEEN ACCEPTED AT [facility] ROOM 17[address] SKILLED T: [phone] FOR NURSE TO NURSE REPORT AMBULANCE PLACED ON WILL CALL
[2019-01-05] MEDS: Vitamin B12 1000mcg/ml Inj IM SCH (14:34)
--- NOTE | 2019-01-05 14:35 | NUR ---
NURSE NOTES: Per Mahnaz RN ,patient cedric not receive,Vitamoin B12 IM this Am, medication now given as ordered.
--- NOTE | 2019-01-05 14:37 | Diagnostic Imaging Report ---
Clinical Indication: Abdominal pain Technique: Patient given oral contrast. IV administration nonionic contrast. Venous phase spiral acquisition obtained through the abdomen and pelvis. Multiplanar reconstructions were generated. Total dose length product 1179.16 mGycm. CTDIvol(s) 19.07,17.05 mGy. Dose reduction achieved using automated exposure control Comparison: none Findings: There is some dense contrast in the hepatic flexure the colon, presumably residual from previous swallowing study. This throws off a small amount of streak artifact. The appendix is normal. There are a few colonic diverticula. No evidence of diverticulitis. Ingested contrast has traversed the small bowel, reaches the cecum. No small bowel distention. No small bowel wall thickening. There is a minimal fat-containing hiatal hernia. No free or loculated intraperitoneal gas or fluid is evident. There appears to be some sludge within the gallbladder fundus. The liver is unremarkable. No biliary ductal dilatation. The pancreas, spleen, adrenals, kidneys are unremarkable. No renal or ureteral calculi, hydronephrosis, or hydroureter. No retroperitoneal or mesenteric mass or adenopathy. The bladder is distended. No pelvic mass or adenopathy. The lung bases demonstrate a masslike opacity in the medial right lower lobe abutting the posterior mediastinum. This measures 3 cm AP by 1 cm transverse by 2 cm craniocaudad. There is a cystic space in the inferior right upper lobe and within the right lower lobe. There is a small left pleural effusion. The bones demonstrate degenerative spondylosis changes. Impression: 3 x 1 x 2 cm masslike opacity in the posterior medial right lower lobe abutting the posterior mediastinum. This could represent an area of scarring or atelectasis, but neoplastic etiology also possible. This finding was reported to Dr. Tapia at the time of interpretation Small left pleural effusion No acute abdominal or pelvic process Colonic diverticulosis. No evidence of diverticulitis Gallbladder sludge Incidental finding degenerative spondylosis The CT scanner at [facility] is accredited by the [employer] and the scans are performed using protocols designed to limit radiation exposure to as low as reasonably achievable to attain images of sufficient resolution adequate for diagnostic evaluation.
--- NOTE | 2019-01-05 14:55 | NUR ---
P.T Note: P.T evaluation completed and treatment initiated. Please refer to P.T evaluation for current functional status. Recommend SNF for short term rehab at [place] Addendum: 01/05/19 at 1456 by MARGUERITE CORREA PT Amended: Links added.
[2019-01-05 16:00] VITALS: BP 130/71
--- NOTE | 2019-01-05 18:21 | NUR ---
NURSE NOTES: Patient resting,no complaints at this time,bed alarm is on,call light within reach.
[2019-01-05] MEDS ORDERED: Isovue-300 100ml vial INJ PRN (18:30)
--- NOTE | 2019-01-05 19:39 | NUR ---
HAND-OFF: Report given to Candy JENKINS.
--- NOTE | 2019-01-05 19:53 | NUR ---
NURSE NOTES: Patient in bed, alert to name and place. IV in place, running IV fluids. No complaints of pain at this time. No s/s distress noted. Bed in lowest position, call light within reach, bed alarm on. Will continue to monitor.
[2019-01-05] MEDS: Tamsulosin 0.4mg cap ORAL SCH (20:12)
[2019-01-05 20:57] VITALS: BP 139/73
--- NOTE | 2019-01-05 23:15 | Progress Note ---
DATE: 01/05/2019 CARDIOLOGY PROGRESS NOTE SUBJECTIVE: The patient has no new complaints. No chest pain or shortness of breath. Oral intake is improving. Abdomen and pelvic CT scan notable only for a possible abnormality in the lower right lung field, possibly on , but imaging was poor. OBJECTIVE: VITAL SIGNS: Blood pressure 136/79, pulse 66, and respirations 20. LUNGS: Good breath sounds. HEART: Regular rhythm and rate. ABDOMEN: Soft. EXTREMITIES: No edema. IMPRESSION AND PLAN: In view of his history of heavy smoking in the past, we will need to rule out lung mass. A CT scan of the chest is requested. He will also be going to a senior living facility for rehabilitation prior to returning home. He will also be continuing on speech therapy for his dysphagia, vitamin supplementation for his vitamin B12 and B6 deficiencies, and his cardiopulmonary regimen will be appropriately titrated based on clinical parameters. Donald Tapia M.D. DR: YONY JOB#: [id number] CC:
--- NOTE | 2019-01-05 23:28 | General Progress Note ---
Assessment/Plan Problem List: (1) Acute encephalopathy ICD Codes: G93.40 - Encephalopathy, unspecified SNOMED: 80703720, 484926526 (2) Schizophrenia ICD Codes: F20.9 - Schizophrenia, unspecified SNOMED: 97069637 Status: stable, progressing Assessment/Plan Risperdal will be continued the pt lacks capacity to make decisions Subjective Neurologic/Psychiatric: Reports: anxiety Allergies: Coded Allergies: No Known Allergies (Verified , 11/21/15) Subjective somewhat confused knows in the hospital Objective Last 24 Hour Vital Signs Date Time Temp Pulse Resp B/P (MAP) Pulse Ox O2 Delivery O2 Flow Rate FiO2 01/05/19 20:57 97.3 76 20 139/73 (95) 93 01/05/19 20:55 Room Air 01/05/19 16:00 97.2 72 20 130/71 (90) 98 72 01/05/19 12:31 97.3 66 20 136/79 (98) 66 01/05/19 08:15 Room Air 01/05/19 08:00 98.1 66 20 139/91 (107) 95 66 01/05/19 04:00 98.4 67 18 135/77 (96) 99 01/05/19 00:00 98.2 72 20 134/87 (103) 99 Intake and Output 01/04/19 01/05/19 18:59 06:59 Intake Total 1200 ml Balance 1200 ml Intake Oral 1200 ml # Voids 4 Height (Feet): 6 Height (Inches): 2.00 Weight (Pounds): 210 General Appearance: WD/WN, no apparent distress, alert Neurologic: disoriented, depressed affect Pat Ponce MD Jan 05, 2019 23:28
[2019-01-06 00:53] VITALS: BP 143/77
[2019-01-06 04:00] VITALS: BP 143/77
--- NOTE | 2019-01-06 04:00 | NUR ---
NURSE NOTES: PATIENT ASLEEP, NO DISTRESS.
[2019-01-06] MEDS: NS w/KCl 20mEq 1,000 ML IV SCH ×2 (04:13→08:29)
[2019-01-06 05:07] VITALS: BP 118/63
[2019-01-06 06:16] LABS: ALANINE AMINOTRANSFERASE 15 U/L (12-78); ALBUMIN 3.1 G/DL (3.4-5.0); ALBUMIN/GLOBULIN RATIO 0.8 (1.0-2.7); ALKALINE PHOSPHATASE 73 U/L (46-116); ANION GAP 8 mmol/L (5-15); ASPARTATE AMINO TRANSFERASE 15 U/L (15-37); BILIRUBIN,TOTAL 0.4 MG/DL (0.2-1.0); BLOOD UREA NITROGEN 9 mg/dL (7-18); CALCIUM 9.2 MG/DL (8.5-10.1); CARBON DIOXIDE 26 MMOL/L (21-32); CHLORIDE 106 MMOL/L (98-107); CREATININE 0.9 MG/DL (0.55-1.30); SODIUM 140 MMOL/L (136-145)
--- NOTE | 2019-01-06 07:03 | NUR ---
HAND-OFF: Report given to CHRISTIANO PALUMBO RN.
[2019-01-06 08:00] VITALS: BP 124/68
[2019-01-06] MEDS: Benztropine 1mg tab ORAL SCH ×2 (08:21→13:45)
[2019-01-06] MEDS: Vitamin B12 1000mcg/ml Inj IM SCH (08:22)
[2019-01-06] MEDS: Heparin 5000 units/ml inj SUBQ SCH (08:28)
--- NOTE | 2019-01-06 10:48 | NUR ---
NURSE NOTES: PT AXOX1-2, CALM, ABLE TO FOLLOW SIMPLE COMMANDS AND ANSWER SIMPLE QUESTIONS. PT DENIES PAIN, NO S/S PAIN OR RESPIRATORY DISTRESS. IN NO APPARENT DISTRESS AT THIS TIME. PT ABLE TO AMBULATE WITH MINIMAL ASSIST. PT ABLE TO DEMONSTRATE HOW TO USE CALL LIGHT FOR ASSISTANCE. WILL CONTINUE TO MONITOR.
--- NOTE | 2019-01-06 11:27 | Diagnostic Imaging Report ---
Clinical Indication: Right lung mass incidentally noted on recent abdomen pelvis CT Technique: IV administration nonionic contrast. Spiral acquisition obtained through the chest. Multiplanar reconstructions generated. Total dose length product 1018.98 mGycm. CTDIvol(s) 24.1 mGy. Dose reduction achieved using automated exposure control Comparison: Abdomen pelvis CT 01/05/2019 Findings: There is a masslike opacity in the posterior medial right lower lobe, abutting the paraspinous pleura surface. This appears somewhat spiculated, measures 2.9 cm AP by 2.1 cm transverse by 2.1 cm craniocaudad. There is thickening of the adjacent pleura. Nonspecific reticular interstitial interstitial opacities are seen in the right upper lobe and superior segment of the right lower lobe. A small bulla is seen in the inferior right upper lobe.. Irregular 3 cm opacity is seen in the inferior lingula which appears essentially flat in the craniocaudal dimension. Minimal atelectatic changes are seen in the inferior left lower lobe. There is a small left pleural effusion. The heart size is normal. There is an anterior wall pericardial effusion which measures up to 9 mm thick. No recent or hilar mass or adenopathy. Unremarkable esophagus. The included thyroid is unremarkable. No axillary or chest wall mass or adenopathy. The included upper abdominal anatomy is unremarkable. The bones are unremarkable. Impression: 2.9 x 2.1 x 2.1 cm masslike opacity in the posterior medial right lower lobe abutting the paraspinous pleural surface, corresponding to findings reported on previous day's abdomen/pelvis CT scan. This could represent an area of scarring, atelectasis, consolidation, or neoplasm. 3 cm irregular opacity in the inferior left lingula. Most likely an area of scarring or atelectasis; does not appear particularly masslike. Nonspecific right upper lobe and superior segment right lower lobe reticular opacities. These could be inflammatory or postinflammatory Single small bulla or air cyst in the inferior right upper lobe noted Trace left pleural effusion Small anterior wall pericardial effusion The CT scanner at [facility] is accredited by the [employer] and the scans are performed using protocols designed to limit radiation exposure to as low as reasonably achievable to attain images of sufficient resolution adequate for diagnostic evaluation.
--- NOTE | 2019-01-06 11:57 | NUR ---
DISCHARGE PLANNING DISCHARGE WILL HINGE ON CT RESULTS RESULTS FAXED TO DR GUTIERREZ'S OFFICE
[2019-01-06 12:00] VITALS: BP 132/75
--- NOTE | 2019-01-06 13:36 | Consultation ---
Consult Note Consult Note dict RLL mass outpatient needle bx Arron Yousif MD Jan 06, 2019 13:36
--- NOTE | 2019-01-06 13:54 | NUR ---
DISCHARGE PLANNED DISCHARGE ORDER NOTED PATIENT WILL DISCHARGE TO [facility] [address] [facility] ROOM [address] T: [phone] FOR NURSE TO NURSE [facility]PORT [facility] FOR 1530 MANAGER COMPLIANCE Addendum: 01/06/19 at 1406 by NHAN WIGGINS LVN LVN PATIENT REQUESTED THIS MACHINE HOOP MAKER HELPER NOTIFY COLLIN ARELLANO TO WHERE HE IS GOING MESSAGE LEFT FOR MS ARELLANO
--- NOTE | 2019-01-06 14:16 | NUR ---
NURSE NOTES: RN LEFT MESSAGE FOR VASYL ARELLANO (NEXT OF KIN) REGARDING DISCHARGE TO [facility]. RN GAVE REPORT TO ALICE MAHAN, AT [facility] AND MADE AWARE OF PT NEEDING OUTPATIENT NEEDLE BIOPSY FOR RIGHT LUNG LOWER LOBE MASSLIKE OPACITY.
[2019-01-06] MEDS ORDERED: BENZTROPINE ME0.5 MG PO (14:19)
[2019-01-06] MEDS ORDERED: NORVASC5 MG ORAL (14:19)
[2019-01-06] MEDS ORDERED: RISPERDAL2 MG ORAL (14:19)
[2019-01-06] MEDS ORDERED: PEPCID AC20 M2 PO (14:20)
[2019-01-06] MEDS ORDERED: FOLIC ACID1 MG ORAL (14:20)
[2019-01-06] MEDS ORDERED: VITAMIN B-12500 MCG IM (14:21)
[2019-01-06] MEDS ORDERED: FLOMAX0.4 MG ORAL (14:22)
--- NOTE | 2019-01-06 15:43 | NUR ---
NURSE NOTES: PT DISCHARGED IN STABLE CONDITION WITH AMBULANCE PERSONNEL. IV ACCESS DISCONTINUED. BELONGINGS CHECKED AT BEDSIDE, ALL BELONGINGS ACCOUNTED.
--- NOTE | 2019-01-06 19:30 | Consultation ---
DATE OF CONSULTATION: 01/06/2019 PULMONARY CONSULTATION REASON FOR CONSULTATION: Lung mass. HISTORY OF PRESENT ILLNESS: The patient is a 68-year-old schizophrenic man, who was admitted because of decreased intake and weakness. He has apparently lost some weight and his blood pressure was low. He was evaluated and found to have a mass in the lung and I was called to see him in consultation. The patient is a poor historian. He states that he is still smoking, although the records states that he quit several years ago. He cannot quantify the amount of weight loss. PAST MEDICAL HISTORY: Chronic obstructive pulmonary disease, schizophrenia, hypertensive heart disease, osteoarthritis, degenerative disc disease, tardive dyskinesia, and prostate hypertrophy. ALLERGIES: None. SOCIAL HISTORY: He is a former smoker. He does not drink or abuse any drugs. REVIEW OF SYSTEMS: Cannot be obtained. PHYSICAL EXAMINATION: GENERAL: The patient was sleeping when I arrived, but woke up and was confused. VITAL SIGNS: Stable. His saturation is normal. He is overweight. HEENT: Head is normocephalic. NECK: He has no jugular venous distention or lymphadenopathy. CHEST: Clear. CARDIAC: Rhythm is regular. ABDOMEN: Soft and nontender. EXTREMITIES: No clubbing, cyanosis, or edema. LABORATORY DATA: Laboratory studies are unremarkable. He is not anemic. Chest x-ray was read as mild upper lobe interstitial changes. A CT of the chest shows the right lower lobe mass 2.1 x 2.9 cm in the medial portion abutting the spine. There are some other areas of irregular opacity suggesting atelectasis or scarring. IMPRESSION: 1. Right lower lobe mass 2.9 cm. 2. Heavy cigarette smoker with chronic obstructive pulmonary disease. 3. Schizophrenia. 4. Failure to thrive with weight loss. 5. Hypertensive heart disease. 6. Degenerative disc disease. 7. Prostate hypertrophy. PLAN: We will send several tumor markers for evaluation. He will be discharged soon according to my discussions with the attending physician. We will arrange an outpatient percutaneous needle biopsy of the lung mass. Thanks for asking me to see him in consultation. Arron Yousif M.D. DR: RUBY JOB#: [id number] CC: Oksana Chawla M.D. ; FAX#: [phone] Krystian Nelson M.D.
--- NOTE | 2019-01-06 19:38 | General Progress Note ---
Assessment/Plan Problem List: (1) Acute encephalopathy ICD Codes: G93.40 - Encephalopathy, unspecified SNOMED: 34538358, 066280534 (2) Schizophrenia ICD Codes: F20.9 - Schizophrenia, unspecified SNOMED: 71662980 Assessment/Plan Risperdal will be continued the pt lacks capacity to make decisions Subjective Neurologic/Psychiatric: Reports: anxiety, depressed, emotional problems Allergies: Coded Allergies: No Known Allergies (Verified , 11/21/15) Subjective somewhat confused knows in the hospital Objective Last 24 Hour Vital Signs Date Time Temp Pulse Resp B/P (MAP) Pulse Ox O2 Delivery O2 Flow Rate FiO2 01/06/19 12:00 98.0 79 20 132/75 (94) 98 01/06/19 09:00 Room Air 01/06/19 08:22 61 124/68 01/06/19 08:00 98.4 61 18 124/68 (86) 98 01/06/19 04:00 96.7 72 20 143/77 (99) 94 01/06/19 00:53 96.7 72 20 143/77 (99) 94 01/05/19 20:57 97.3 76 20 139/73 (95) 93 01/05/19 20:55 Room Air Intake and Output 01/05/19 01/06/19 19:00 07:00 Intake Total 550 ml 840 ml Output Total 300 ml Balance 250 ml 840 ml Intake Oral 250 ml 240 ml IV Total 300 ml 600 ml Output Urine Total 300 ml Laboratory Tests 01/06/19 05:15: Sodium Level 140, Potassium Level 4.0, Chloride Level 106, Carbon Dioxide Level 26, Anion Gap 8, Blood Urea Nitrogen 9, Creatinine 0.9, Estimat Glomerular Filtration Rate > 60, Glucose Level 86, Calcium Level 9.2, Magnesium Level 1.8, Total Bilirubin 0.4, Aspartate Amino Transf (AST/SGOT) 15, Alanine Aminotransferase (ALT/SGPT) 15, Alkaline Phosphatase 73, Total Protein 6.9, Albumin 3.1L, Globulin 3.8, Albumin/Globulin Ratio 0.8L 01/06/19 05:30: Alpha Fetoprotein [Pending], Carcinoembryonic Antigen [Pending], CA 19-9 Antigen [Pending] Height (Feet): 6 Height (Inches): 2.00 Weight (Pounds): 210 Farhadi,Pantea MD Jan 06, 2019 19:38
--- NOTE | 2019-01-07 03:30 | Progress Note ---
DATE: 01/06/2019 INTERNAL MEDICINE PROGRESS NOTE SUBJECTIVE: Calm and cooperative, but somewhat confused. OBJECTIVE: VITAL SIGNS: Blood pressure 132/75, pulse 79, and respirations 20. LUNGS: Few rhonchi. CARDIAC: Regular. ABDOMEN: Soft. EXTREMITIES: No edema. NEUROLOGIC: Nonfocal. IMAGING: CT of the chest, possible mass noted. IMPRESSION: 1. Lung mass. 2. B12 and folate deficiencies. 3. Chronic obstructive pulmonary disease. 4. Hypertensive heart disease. 5. Schizophrenia. 6. Functional decline. 7. Tardive dyskinesia. PLAN: 1. Transfer to senior living facility for therapy and mobilization. 2. We will schedule outpatient lung biopsy at [facility] as recommended by Dr. Yousif. 3. Followup on results of tumor markers. 4. Discharge medication regimen updated. Donald Tapia M.D. DR: YONY JOB#: [id number] CC:
--- NOTE | 2019-01-07 09:40 | Diagnostic Imaging Report ---
Indications: Dysphagia Technique: Patient ingested multiple substances under the supervision of speech pathology. Video fluoroscopic recording performed. Total fluoroscopy time 129.9 seconds. Total dose area product 0.34521 mGycm2 Total number of images-10 Comparison: none Findings: Early pooling of contrast is seen within the hypopharynx. Good clearance of all consistencies with swallowing. Delayed initiation of deglutition with the thicker consistencies. No aspiration or penetration Impression: Negative for aspiration or penetration Please refer to speech pathology report for more detailed analysis
--- NOTE | 2019-01-07 13:31 | Discharge Summary ---
Discharge Summary Discharge Summary _ Discharge summary DATE OF ADMISSION: 01/01/2019 / DATE OF DISCHARGE :01/06 2019 DISCHARGED BY: REASON FOR ADMISSION: 68 years old male with past medical history of COPD, hypertensive heart disease , osteoarthritis, degenerative disc disease, tardive dyskinesia,, prostate hypertrophy, schizophrenia, presented with several months of weight loss , poor appetite and generalized decline in function. His cognition was decreased as well. Hospitalization was initiated for further evaluation and care. Patient also noted to have low blood pressure . No episodes of loss of consciousness, dizziness or blackouts were noted by caregiver. Upon evaluation in emergency department laboratory workup revealed no leukocytosis, stable hemoglobin and hematocrit. Stable electrolytes. Lactic acid 1.7. BUN 8, creatinine 1.3. Stable LFT ,lipase. Troponin negative. Albumin 3.9 . Urinalysis revealed no evidence of UTI . EKG revealed normal sinus rhythm, no acute ischemic changes Chest x-ray revealed no acute cardiopulmonary pathology. CT of the head revealed no acute intracranial pathology. Patient admitted for further evaluation and management. CONSULTANTS: pulmonary Dr. Yousif psychiatrist [facility]RSE: Patient admitted and started on IV hydration. Antihypertensive and anti-psychiatric medication regimen was optimized to decrease the dose for psychiatric medication and for antihypertensive provide holding parameters. Patient was encouraged to have oral intake. Patient subsequently undergone bedside swallow evaluation, which revealed evidence of dysphagia. Speech therapist recommended continue with current, soft, easy chew diet with thin liquids with strict aspiration precautions and one-to-one assistance. Speech therapist recommended video swallow evaluation to rule out silent aspiration. Nutritional assessment revealed moderate nutritional risk. Protein supplements were added to patient diet, according to registered dietitian recommendation to improve nutritional status. Patient subsequently undergone video swallow evaluation, which was negative for aspiration daily or penetration. Subsequently the diet was continued as recommended by speech therapist with strict aspiration precautions. CT scan of the abdomen and pelvis revealed 3 x 1 x 2 masslike opacity in the posterior medial right lower lobe abutting the posterior mediastinum ; area of scarring or atelectasis was possible, but neoplastic etiology was also possibility. No acute abdominal or pelvic process. Colonic diverticulosis without evidence of diverticulitis. Gallbladder sludge. Pulmonology consult was requested. Patient subsequently undergone CT of the chest, which demonstrated 2.9 x 2.1 x 2.1 cm masslike opacity in the posterior medial right lower lobe , abutting the paraspinous pleural surface, corresponding to findings reported on previous day abdomen /pelvis CT scan. Representing area of scarring, atelectasis, consolidation or neoplasm. 3 cm irregular opacity in the inferior left lingula noted, most likely area of scarring or atelectasis, did not appear particularly masslike. Cancer tumor markers were all within normal limits: specifically alpha- fetoprotein, CEA, and CA-19-9. Per city letter carrier , patient with history of heavy cigarette smoker and COPD , and had a high risk for possible malignancy. Outpatient percutaneous needle biopsy of the lung mass was recommended and will be arranged at the tertiary facility as per city letter carrier recommendation. Psychiatrist seen and evaluated patient. Per psychiatrist, patient with schizophrenia and acute encephalopathy. Risperdal was continued. According to psychiatrist patient lacks capacity to make decision. Hemoglobin and hematocrit remained stable. Laboratory work revealed evidence of borderline B12 and folate deficiency. Patient started on B12 and folate replacement. DVT and GI prophylaxis provided. Blood pressure was managed with calcium channel trixie. [facility]. Patient will require outpatient lung mass biopsy at tertiary facility, which will be arranged. FINAL DIAGNOSES: Acute encephalopathy Right lower lobe lung mass -2.9 cm History of heavy cigarette smoker COPD Failure to thrive with weight loss Protein calorie malnutrition Dysphagia Hypertensive heart disease Degenerative disc disease Prostate hypertrophy B12 and folate deficiency Tardive dyskinesia Functional decline Schizophrenia DISCHARGE MEDICATIONS: See Medication Reconciliation list. DISCHARGE INSTRUCTIONS: Patient was [facility]. Follow up with medical doctor at the facility. I have been assigned to dictate discharge summary for this account. I was not involved in the patient's management. Aiyana Ramirez NP Jan 07, 2019 13:31
== END 2019-01-06 15:47 | DRG 71 ==
LOC: EMR 16:43 → 4E 17:30 → EDBEDREQ 18:35
DX: G93.40 Encephalopathy, unspecified (principal); E46 Unspecified protein-calorie malnutrition; F20.9 Schizophrenia, unspecified; Z87.891 Personal history of nicotine dependence; J44.9 Chronic obstructive pulmonary disease, unspecified; I11.9 Hypertensive heart disease without heart failure; R91.8 Other nonspecific abnormal finding of lung field; R13.10 Dysphagia, unspecified; N40.0 Benign prostatic hyperplasia without lower urinary tract symptoms; E53.8 Deficiency of other specified B group vitamins; G24.01 Drug induced subacute dyskinesia; K57.90 Diverticulosis of intestine, part unspecified, without perforation or abscess without bleeding; E86.1 Hypovolemia; M19.90 Unspecified osteoarthritis, unspecified site; R62.7 Adult failure to thrive; F29 Unspecified psychosis not due to a substance or known physiological condition; Z68.27 Body mass index [BMI] 27.0-27.9, adult
CPT/HCPCS: 36415; 70450; 71045; 71260; 74177; 74230; 80053; 80307; 81003; 82105; 82140; 82378; 82550; 82553; 82607; 82746; 83605; 83735; 84100; 84443; 84484; 85025; 85610; 85730; 86710; 87040; 93005; 96360; 99285

== ENCOUNTER 2019-06-29 09:11 | Inpatient (IN) | payer MEDICARE, MEDICAID ==
[~2019-06-29] VITALS: Ht 185.4 cm; Wt 95.4 kg
--- NOTE | 2019-06-29 | NUR ---
NURSE NOTES: Pt refused blood drawing for blood culture. RN educated pt regarding for the importance of blood test.
[~2019-06-29 09:11] MED LIST changes: +BENZTROPINE ME0.5 MG PO; +FLOMAX0.4 MG ORAL; +FOLIC ACID1 MG ORAL; +NORVASC5 MG ORAL; +PANTOPRAZOLE SO40 MG ORAL; +PEPCID AC20 M2 PO; +RISPERDAL2 MG ORAL; +VITAMIN B-12500 MCG IM; +VITAMIN D3 COM1 EACH PO
[2019-06-29] MEDS ORDERED: UNOBMED (09:27)
--- NOTE | 2019-06-29 09:30 | NUR ---
ED Nurse Note: pt arrives from home. ambulates steady gait. denies pain or dyspnea at this time. pt usually has caregiver help but has been alone x 3 days caring for self.
[2019-06-29 10:00] VITALS: BP 105/67
--- NOTE | 2019-06-29 10:22 | NUR ---
ED Nurse Note: pt without recent admissions and arrives from home, doesn't meet swab admission criteria. pt tolerates iv aand lab draw well. pt aware he is to be admitted to hospital and agrees to plan. pt denies c/o at this time.
[2019-06-29 10:28] LABS: BASOPHILS % (AUTO) 0.8 % (0.0-2.0); EOSINOPHILS % (AUTO) 2.4 % (0.0-3.0); HEMATOCRIT 40.3 % (42.0-52.0); HEMOGLOBIN 13.2 G/DL (14.2-18.0); LYMPHOCYTES % (AUTO) 22.3 % (20.0-45.0); MEAN CORPUSCULAR VOLUME 87 FL (80-99); MONOCYTES % (AUTO) 7.8 % (1.0-10.0); NEUTROPHILS % (AUTO) 66.7 % (45.0-75.0); PLATELET COUNT 193 K/UL (150-450); RED BLOOD COUNT 4.64 M/UL (4.70-6.10); RED CELL DISTRIBUTION WIDTH 12.3 % (11.6-14.8); WHITE BLOOD COUNT 4.9 K/UL (4.8-10.8)
[2019-06-29 10:36] LABS: ANION GAP 10 mmol/L (5-15); BLOOD UREA NITROGEN 5 mg/dL (7-18); CALCIUM 9.2 MG/DL (8.5-10.1); CARBON DIOXIDE 25 MMOL/L (21-32); CHLORIDE 105 MMOL/L (98-107); CREATININE 1.1 MG/DL (0.55-1.30); POTASSIUM 3.8 MMOL/L (3.5-5.1); SODIUM 140 MMOL/L (136-145)
[2019-06-29 10:41] LABS: ALANINE AMINOTRANSFERASE 14 U/L (12-78); ALBUMIN 3.6 G/DL (3.4-5.0); ALBUMIN/GLOBULIN RATIO 0.9 (1.0-2.7); ALKALINE PHOSPHATASE 80 U/L (46-116); ASPARTATE AMINO TRANSFERASE 18 U/L (15-37); BILIRUBIN,TOTAL 0.7 MG/DL (0.2-1.0)
[2019-06-29 11:10] VITALS: BP 113/73
--- NOTE | 2019-06-29 11:19 | NUR ---
ED Nurse Note: pt with belongings list done. pt is able to be transferred to med surg without urine obtainment per ed md.
--- NOTE | 2019-06-29 11:30 | NUR ---
ED Nurse Note: report given to rn awaits pt.
[2019-06-29 12:00] VITALS: BP 145/70
--- NOTE | 2019-06-29 12:15 | NUR ---
Received report from Amanda JENKINS. Pt awake, A/O x 2-3, forgetful from home. Belongings with pt. pt denies pain, no SOB noted. Skin dry /intact. voiding. call light within reach. bed in low position, bed alarm on. fall precaution maintained. will continue to monitor.
--- NOTE | 2019-06-29 12:30 | NUR ---
notified MD regarding pt admission, received order to cont home med / cardiac diet/. will continue to monitor.
[2019-06-29] MEDS ORDERED: Tamsulosin 0.4mg cap ORAL SCH (13:15)
[2019-06-29] MEDS: Vitamin B-12 500mcg tab ORAL SCH (13:15)
[2019-06-29] MEDS: Benztropine 1mg tab ORAL SCH ×2 (14:19→17:25)
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
[2019-06-29] MEDS: Docusate 100mg cap ORAL SCH ×2 (14:45→17:31)
[2019-06-29] MEDS ORDERED: Milk of Magnesia 30ml Ud ORAL PRN (14:45)
[2019-06-29 16:27] VITALS: BP 125/78
--- NOTE | 2019-06-29 17:35 | NUR ---
NURSE NOTES: Left message to MD regarding clarification of home meds, duplicate orders. waiting for call back.
--- NOTE | 2019-06-29 19:18 | NUR ---
HAND-OFF: Report given to Ailyn JENKINS.
--- NOTE | 2019-06-29 19:20 | NUR ---
NURSE NOTES: Received pt resting in bed. AAO x 3. On room air. IV site intact and patent. No c/o pain, no acute distress noted at this time. Bed locked, lowest position , alarm on, side rails up x 2, call light within reach. Will continue to monitor.
[2019-06-29 20:00] VITALS: BP 138/67
--- NOTE | 2019-06-29 21:30 | NUR ---
NURSE NOTES: Pt refused blood drawing for blood culture. RN educated patient regarding the importance of blood test. Addendum: 06/30/19 at 0727 by LAINA BARILLAS RN RN NURSE NOTES: Notified Dr. Nelson.
[2019-06-29] MEDS: Tamsulosin 0.4mg cap ORAL SCH (21:54)
--- NOTE | 2019-06-29 22:30 | Consultation ---
DATE OF CONSULTATION: 06/29/2019 CARDIOLOGY CONSULTATION CONSULTING PHYSICIAN: Donald Tapia M.D. REFERRING PHYSICIAN: Krystian Nelson M.D. REASON: Hypotension. HISTORY: This 69-year-old male has a history of hypertension presented to the emergency room with failure to thrive and was noted to have a low blood pressure range. Usually, he is hypertensive on medications. His usual caregiver has been hospitalized for the past several days. The patient has not been able to care for himself. It is not clear how much he has been eating or whether he has taken some, all, or none of his medications or too many of some I doubt. He has not had any nausea, vomiting, or complaints of pain. He has not had any shortness of breath. PAST MEDICAL HISTORY: Schizoaffective disorder, hypertension, tardive dyskinesias, COPD, prostatic hypertrophy. ALLERGIES: None. MEDICATIONS: Reviewed and reconciled. SOCIAL HISTORY: Former smoker as well as secondhand smoke exposure. No alcohol or substance abuse. FAMILY HISTORY: His brother of complications of COPD and endocarditis. REVIEW OF SYSTEMS: Not obtainable reliably from the patient. Pertinent data available as outlined above. It is known that an outpatient echocardiogram recently revealed normal ejection fraction with concentric hypertrophy and a diastolic relaxation abnormality with no significant valvular disease. There is no known history of sustained atrial or ventricular arrhythmias or endocarditis. There is no known history of flow-limiting coronary disease. He has had respiratory failure in the distant past due to COPD. There is no history of diabetes or thyroid disorder. PHYSICAL EXAMINATION: GENERAL: Alert but withdrawn. VITAL SIGNS: Blood pressure 99/67, pulse 86, respirations 18, afebrile. HEENT: There is no facial asymmetry. Mucous membranes are dry. There is some tardive dyskinesias of the mouth noted with speech. LUNGS: With clear breath sounds. Chest wall with increased AP diameter. CARDIAC: Regular rhythm and rate. Normal S1, S2 with no murmur. ABDOMEN: Obese, but soft and nontender. EXTREMITIES: No clubbing, cyanosis, or edema. There is a slight resting tremor. No asterixis. EKG reveals sinus rhythm with no acute abnormalities and an incomplete right bundle-branch block. Labs are reviewed. Chest x-ray pending for review and by report no acute process. IMPRESSION: 1. Hypovolemia and dehydration with associated hypotension. No clinical signs of shock. 2. Metabolic encephalopathy. 3. History of COPD. 4. History of hypertension. 5. Schizoaffective disorder with history of tardive dyskinesias due to medications. PLAN: 1. Hydration as needed. 2. Hold antihypertensives until euvolemic. 3. Metabolic profile. 4. Re-titrate psychiatric medications. 5. Respiratory hygiene. 6. DVT prophylaxis. Donald Tapia M.D. DR: DIRK JOB#: [id number] CC:
[2019-06-30] VITALS: BP 100/56
[2019-06-30 04:00] VITALS: BP 124/61
--- NOTE | 2019-06-30 05:04 | NUR ---
NURSE NOTES: Dr. Nelson visited pt and verified pending meds dose. RN called pipe line to verify meds.
--- NOTE | 2019-06-30 05:45 | History and Physical Report ---
DATE OF ADMISSION: 06/29/2019 CHIEF COMPLAINT: Altered mental status. HISTORY OF PRESENT ILLNESS: The patient is a pleasant male. He has a history of psychosis, hypertension, COPD, peptic ulcer disease, and GI bleed. He was admitted with complaints of generalized weakness, malaise, and confusion. 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 We were contacted by the patient's home health. The patient's condition had drastically changed, he was significantly more confused. He is also noted to be hypotensive. He denies any fever or chills. No chest pain or shortness of breath. Because of his confusion, it is unclear whether or not he may have taken too much blood pressure medicine. In the ER, his blood pressure was low as 100/56 and he was dizzy. PAST MEDICAL HISTORY: As above. PAST SURGICAL HISTORY: None. CURRENT MEDICATIONS: Reconciled and reviewed. ALLERGIES: None. FAMILY HISTORY: None. SOCIAL HISTORY: Negative for alcohol or drugs. The patient was previously heavy smoker. REVIEW OF SYSTEMS: Unobtainable as the patient is confused. PHYSICAL EXAMINATION: VITAL SIGNS: Temperature 98.1, pulse 59, respirations 18, and blood pressure 100/56. GENERAL: The patient is well developed, in no apparent distress. HEART: Regular rate and rhythm. LUNGS: Lungs are clear. ABDOMEN: Soft, nontender, and nondistended. EXTREMITIES: Without clubbing, cyanosis, or edema. LABORATORY DATA: White count was 5, hemoglobin 13. Sodium 140, potassium 3.8. Toxicology screen was negative. ASSESSMENT: This is a 69-year-old male admitted with complaints of confusion and hypotension, possibly secondary to taking too much of his blood pressure medications. PLAN: We will monitor blood pressure, bolus IV fluids as needed. Cardiology consultation regarding the patient's blood pressure regimen will be obtained. Anticipate hopefully discharge in the next 24 to 48 hours if the blood pressure stabilizes. Krystian Nelson M.D. DR: CELESTE JOB#: [id number] CC:
--- NOTE | 2019-06-30 07:27 | NUR ---
HAND-OFF: Report given to ALICE Joya. Addendum: 06/30/19 at 1102 by ALINA BARILLAS RN RN NURSE NOTES: Error
--- NOTE | 2019-06-30 07:34 | NUR ---
HAND-OFF: Report given to ALICE Redmond.
--- NOTE | 2019-06-30 07:50 | NUR ---
NURSE NOTES: Patient alert x3, mentals delays; on room air, no sing of shortness of breath; no sing chest pain; IV Right-Hand 20G flushes well; according to the report PM nurseJosefina, patient ambulated, call light provide and within reach; side rails up x2, breaks engaged, bed at lowest position; will keep monitoring.
[2019-06-30 07:56] LABS: AMMONIA 22 umol/L (11-32)
[2019-06-30 08:00] VITALS: BP 130/60
[2019-06-30 08:07] LABS: ANION GAP 8 mmol/L (5-15); BLOOD UREA NITROGEN 3 mg/dL (7-18); CALCIUM 9.1 MG/DL (8.5-10.1); CARBON DIOXIDE 26 MMOL/L (21-32); CHLORIDE 108 MMOL/L (98-107); CREATININE 0.8 MG/DL (0.55-1.30); POTASSIUM 3.9 MMOL/L (3.5-5.1); SODIUM 142 MMOL/L (136-145)
[2019-06-30] MEDS: Vitamin B-12 500mcg tab ORAL SCH (08:54)
[2019-06-30] MEDS: Docusate 100mg cap ORAL SCH ×2 (08:55→17:15)
[2019-06-30] MEDS: Benztropine 1mg tab ORAL SCH ×3 (08:55→17:15)
[2019-06-30 12:00] VITALS: BP 126/83
--- NOTE | 2019-06-30 15:41 | NUR ---
CASE MANAGEMENT:REVIEW SENT FROM MD'S OFFICE TO ER...LIVES AT HOME CC: FAILURE TO THRIVE SI:ACUTE ENCEPHALOPATHY. WEAKNESS 97.5 86 18 99/67 98% ON RA IS: 500CC NS BOLUS : TO TELEMETRY INTERQUAL CRITERIA MET
[2019-06-30 16:00] VITALS: BP 121/80
--- NOTE | 2019-06-30 19:02 | NUR ---
HAND-OFF: Report given to ALICE Shaw.
[2019-06-30 20:00] VITALS: BP 108/57
[2019-06-30] MEDS: Heparin 5000 units/ml inj SUBQ SCH ×2 (21:00→21:10)
[2019-06-30] MEDS: Tamsulosin 0.4mg cap ORAL SCH (21:08)
[2019-07-01] VITALS: BP 122/69
--- NOTE | 2019-07-01 00:45 | Progress Note ---
DATE: 06/30/2019 CARDIOLOGY PROGRESS NOTE SUBJECTIVE: The patient's blood pressure range has improved. He received IV fluid yesterday. He is more alert and interactive. His appetite is better. OBJECTIVE: VITAL SIGNS: Blood pressure 130/60, pulse 76, respirations 20. Afebrile. Oxygen saturation 98% on room air. HEENT: Some lip-smacking. LUNGS: Diminished breath sounds. No wheezing or rales. HEART: Regular rhythm and rate. Normal S1, S2 with a fourth heart sound. ABDOMEN: Soft, mildly obese, nontender. EXTREMITIES: No edema. LABORATORY DATA: Sodium 142, potassium 3.9, bicarb 26, BUN 3, and creatinine 0.8. B12, folate, and TSH within normal limits. Ammonia is only 22, which is normal. IMPRESSION: 1. Hypovolemia with early shock, recovered. 2. Tardive dyskinesias due to neuroleptic therapy. 3. Schizoaffective disorder. 4. History of COPD. PLAN: 1. Discontinue IV fluids. 2. DVT prophylaxis. 3. Titrate antihypertensives. 4. Fall precautions. 5. Physical therapy assessment. Donald Tapia M.D. DR: DAVION JOB#: [id number] CC:
--- NOTE | 2019-07-01 07:18 | NUR ---
HAND-OFF: Report given to ALICE Redmond.
--- NOTE | 2019-07-01 07:48 | NUR ---
NURSE NOTES: Patient awake, alert x2, mental delay; room air, no sing of distress and shortness of breath; no sing of chest pain; IV Right-Hand 24G flushes well; urinal within reach; side rails up x2, breaks engaged, bed at lowest position; call light within reach; will keep monitoring.
[2019-07-01 08:00] VITALS: BP 123/63
[2019-07-01 08:45] VITALS: BP 123/63
[2019-07-01] MEDS: Vitamin B-12 500mcg tab ORAL SCH (08:45)
[2019-07-01] MEDS: Docusate 100mg cap ORAL SCH (08:45)
[2019-07-01] MEDS: Benztropine 1mg tab ORAL SCH ×2 (08:45→12:01)
[2019-07-01] MEDS: Heparin 5000 units/ml inj SUBQ SCH (08:47)
--- NOTE | 2019-07-01 10:42 | NUR ---
P.T Note: P.T evaluation completed. Pt is baseline independent in all areas of ADL/functional mobilities. Patient's current functional status does not warrant skilled P.T services. Pt educated on importance on OOB activities during stay VS bedrest unless otherwise ordered . D/C P.T services. Thank for this referral.
--- NOTE | 2019-07-01 12:52 | NUR ---
CASE MANAGEMENT:REVIEW 07/01/19 SI: HYPOVOLEMIA W/EARLY SHOCK ~ RESOLVED 97.1 100 17 123/63 97% ON RA IS: HEPARIN SQ Q12 NORVASC PO QD PROTONIX PO QD RISPERDAL PO Q12 COGENTIN PO TID FOLATE PO QD : MED/SURG STATUS DCP: FROM HOME
--- NOTE | 2019-07-01 13:19 | NUR ---
CHARGE NURSE NOTE: Received call from pt's family. They spoke with , he is planning to discharge patient today. No discharge order. was called, message left.
--- NOTE | 2019-07-01 15:25 | Cardiology Report ---
APPROVED REPORT EKG Measurement Heart [id number] ID [id number] Normal sinus rhythm Normal ECG
--- NOTE | 2019-07-01 16:03 | CDS Physician Query ---
Clarification is required for compliance, coding accuracy, and to reflect severity of illness for this patient Dear Dr. Donald Tapia Date: 07/01/2019 Account Management Assistant/CDS Name: Chely Knight Clinical Documentation states: 07/01 - The patient's blood pressure range has improved. He received IV fluid yesterday...Hypovolemia with early shock, recovered. 06/29 (admission day) note: Hypovolemia and dehydration with associated hypotension. No clinical signs of shock. Clarification is needed for one (or more) of the following conditions in order to accurately assign the "present on admission' indicator. Please choose the answer that best indicates whether the associated condition was present at the time of the order for inpatient admission. Thank you. Was the Shock Present on admission? [x] YES [] NO [] Clinically Undeterminable Physician signature Date Please also document in your Progress Notes and/or Discharge Summary and indicate if the condition was present on admission. SUPRIYA
--- NOTE | 2019-07-01 16:42 | NUR ---
NURSE NOTES: Patient left the floor around 1550 by wheel chair accompanied by primary nurse; IV access and name tag removed; belonging list sign by patient and primary nurse; printed material regarding patient's stay in the hospital and when to seek medical help provided; family member notified; patient picked by his daughter;
--- NOTE | 2019-07-01 23:00 | Progress Note ---
DATE: 07/01/2019 CARDIOLOGY PROGRESS NOTE SUBJECTIVE: The patient is awake, alert, and at baseline mentation. OBJECTIVE: VITAL SIGNS: Blood pressure 123/63, pulse 100, respirations 17, and afebrile. HEENT: Mild lip-smacking. LUNGS: Clear. CARDIAC: Regular. Normal S1, S2. ABDOMEN: Soft. EXTREMITIES: No edema. Mild . LABORATORY DATA: No new laboratories. IMPRESSION: 1. Metabolic encephalopathy due to noncompliance with medications, now resolved. 2. Schizoaffective disorder. 3. Hypertensive heart disease. 4. COPD. PLAN: Stable for outpatient followup with caregiver now present to resume total care and administration of medications and nutrition at home. Donald Tapia M.D. DR: YONY JOB#: [id number] CC:
--- NOTE | 2019-07-02 02:00 | Discharge Summary ---
DATE OF ADMISSION: 06/29/2019 DATE OF DISCHARGE: 07/01/2019 ADMISSION DIAGNOSES: 1. Delirium. 2. Dehydration. 3. Hypertension. 4. COPD. 5. History of GI bleed. 6. Shock. DISCHARGE DIAGNOSES: 1. Delirium. 2. Dehydration. 3. Hypertension. 4. COPD. 5. History of GI bleed. 6. Shock. HOSPITAL COURSE: The patient is a pleasant male, who was admitted with complaints of generalized weakness and altered mentation. He was hypotensive, clinically dehydrated. Of note, he had been home alone. He has developmental delay. He is unable to care for himself and his engineering analyst had been hospitalized for several days. It was thought that the patient had not been eating or drinking. He was admitted and hydrated. He did well and on discharge, he was stable after 48 hours. He will be discharged home. His engineering analyst is now available. DISCHARGE MEDICATIONS: Please see discharge medication list for discharge medications. DIET: Cardiac diet. ACTIVITIES: Ad-denise. FOLLOWUP: The patient will follow up in one to two weeks in the office. Krystian Nelson M.D. DR: HARJINDER JOB#: [id number] CC:
== END 2019-07-01 15:08 | disposition home or self-care (01) | DRG 640 ==
LOC: EDBEDREQ 09:51 → EMR 10:21 → 4E 10:25 → EDBEDREQ 10:47
DX: E86.0 Dehydration (principal); R57.1 Hypovolemic shock; G93.41 Metabolic encephalopathy; F25.9 Schizoaffective disorder, unspecified; R41.0 Disorientation, unspecified; I10 Essential (primary) hypertension; J44.9 Chronic obstructive pulmonary disease, unspecified; F79 Unspecified intellectual disabilities; N40.0 Benign prostatic hyperplasia without lower urinary tract symptoms; G24.01 Drug induced subacute dyskinesia; T43.505A Adverse effect of unspecified antipsychotics and neuroleptics, initial encounter
CPT/HCPCS: 36415; 80048; 80053; 80329; 82140; 82607; 82746; 82962; 84443; 85025; 93005; 99285

== ENCOUNTER → 2020-03-28 | Outpatient (CLI) | payer MEDICARE, MEDICAID ==
[~2020-03-28] MED LIST changes: +UNOBMED
--- NOTE | 2020-03-28 10:39 | Diagnostic Imaging Report ---
EXAM: CT CT Chest no Contrast CLINICAL HISTORY: Chest pain. COPD. TECHNIQUE: Axial images obtained through the chest without contrast. All CT scans at this facility are performed using dose modulation techniques as appropriate to a performed exam including the following: automated exposure control with adjustment of the mA and/or kV according to patient size. RADIATION DOSE: CTDIvol: 7.2 mGy DLP: 306.1 mGy-cm Dose information generated by the CT scanner is available in PACS. COMPARISON: 01/06/2019 FINDINGS: Lungs are clear except for minimal dependent atelectasis. There is a small bleb in the right midlung. Specifically the suspected mass previously noted in the posterior medial right lower lobe is mostly resolved with minimal residual densities. This is compatible with resolving inflammatory disease and previous lingular densities also resolved. Cardiac and mediastinal structures are within normal limits. There is no pathologic size adenopathy. There is no effusion. Limited images through the upper abdomen demonstrate layering hyperdensity in the gallbladder which could be small stones or sludge. Increased stool lucencies noted in the colon. Diffuse degenerative changes of the spine noted. No acute osseous abnormality seen. IMPRESSION: PREVIOUS MASSLIKE DENSITY IN THE POSTERIOR MEDIAL RIGHT LOWER LOBE ADJACENT TO THE SPINE IS MOSTLY RESOLVED WITH MINIMAL RESIDUAL GROUNDGLASS DENSITIES. THIS IS COMPATIBLE WITH RESOLVING INFLAMMATORY DISEASE. NO RESIDUAL MASS IDENTIFIED. PREVIOUS LINGULAR DENSITIES ALSO RESOLVED. ANCILLARY FINDINGS INCLUDE LAYERING STONES OR SLUDGE IN THE GALLBLADDER. INCREASED STOOL LUCENCIES.
== END | disposition home or self-care (01) ==
LOC: CAT 10:46
DX: R07.9 Chest pain, unspecified (principal); J44.9 Chronic obstructive pulmonary disease, unspecified
CPT/HCPCS: 71250